=== PATIENT | male | born 1960 | race Caucasian/White ===

== ENCOUNTER 2018-02-24 11:10 | Inpatient (IN) | payer MEDICAID ==
[~2018-02-24] VITALS: Ht 177.8 cm; Wt 78.8 kg
[2018-02-24] MEDS ORDERED: SODIUM CHLORIDE FLUSH 10ML SYR IVF ONE (12:00)
[2018-02-24] MEDS ORDERED: FAMOTIDINE 20 MG/2 ML IVP ONE (12:00)
[2018-02-24] MEDS ORDERED: ONDANSETRON 2MG/ML, 2ML IVPush ONE (12:00)
[2018-02-24] MEDS ORDERED: SODIUM CHLORIDE 0.9% 1,000ML IVBOLUS ONE (12:00)
[2018-02-24 12:23] LABS: MEAN CORPUSCULAR HGB CONC 33.7 g/dL (33.2-36.2); MEAN CORPUSCULAR VOLUME 88.8 fL (81-97); PLATELET COUNT 242 x10^3/uL (130-400); RED BLOOD COUNT 6.32 x10^6/uL (4.38-5.82); RED CELL DISTRIBUTION WIDTH 13.7 % (9.4-14.8)
[2018-02-24] MEDS ORDERED: ONDANSETRON 2MG/ML, 2ML ONE ×4 (12:26→15:10)
[2018-02-24] MEDS ORDERED: FAMOTIDINE 20 MG/2 ML ONE (12:26)
[2018-02-24 12:28] LABS: ALBUMIN 3.7 g/dL (3.4-5.0); ANION GAP 7 mmol/L (5-15); CALCIUM 9.9 mg/dL (8.5-10.1); CHLORIDE 108 mmol/L (98-107)
[2018-02-24 12:32] LABS: ALANINE AMINOTRANSFERASE 30 U/L (12-78); ALKALINE PHOSPHATASE 158 U/L (45-117); CREATININE 1.25 mg/dL (0.7-1.3); TOTAL PROTEIN 8.2 g/dL (6.4-8.2)
[2018-02-24 13:14] LABS: MD YES
[2018-02-24 13:15] LABS: BAND#(MANUAL) 2.06 x10^3/uL; BANDS%(MANUAL) 14 % (0-7); LYMPH#(MANUAL) 1.62 x10^3/uL (1-3.4); LYMPHS% (MANUAL) 11 % (22-44); MONOS#(MANUAL) 0.44 x10^3/uL (0.3-2.7); MONOS% (MANUAL) 3 % (2-9); SEG#(MANUAL) 10.58 x10^3/uL (1.8-6.8); SEGS% (MANUAL) 72 % (42-75)
[2018-02-24 13:16] LABS: <PLATELET ESTIMATE> ADEQUATE; <PLT MORPHOLOGY> NORMAL PLT MORPH
[2018-02-24] MEDS ORDERED: OMNIPAQUE 350 MG/ML, 100ML BOTTLE ONE (13:43)
[2018-02-24] MEDS ORDERED: SODIUM CHLORIDE 0.9% 1,000 ML IV ONE ×2 (14:02→14:03)
[2018-02-24] MEDS ORDERED: MORPHINE SULFATE 4 MG/ML, 1ML IVPush PRN ×2 (14:30→22:00)
[2018-02-24] MEDS ORDERED: SODIUM CHLORIDE FLUSH 10ML SYR IVF PRN (14:30)
[2018-02-24] MEDS ORDERED: ONDANSETRON 2MG/ML, 2ML IVPush PRN ×3 (14:30→22:00)
[2018-02-24] MEDS ORDERED: FENTANYL PF 100 MCG/2ML ONE ×5 (14:39→18:59)
[2018-02-24] MEDS ORDERED: MIDAZOLAM 1 MG/ML, 2ML ONE (14:39)
[2018-02-24] MEDS ORDERED: WATER-INJECTION,STERILE 10 ML IV ONE ×2 (14:39→14:44)
[2018-02-24] MEDS ORDERED: CEFAZOLIN 1,000 MG ONE ×2 (14:39)
[2018-02-24] MEDS ORDERED: EPHEDRINE 50 MG/ML, 1ML ONE (14:39)
[2018-02-24] MEDS ORDERED: LIDOCAINE-MPF 2% ,5ML ONE (14:39)
[2018-02-24] MEDS ORDERED: SUCCINYLCHOLINE 20 MG/ML, 10ML ONE ×2 (14:42→15:10)
[2018-02-24] MEDS ORDERED: NEOSTIGMINE 1 MG/ML, 10ML ONE (14:42)
[2018-02-24] MEDS ORDERED: ROCURONIUM 10MG/ML,5ML ONE (14:42)
[2018-02-24] MEDS ORDERED: GLYCOPYRROLATE 0.4 MG/2 ML, 2ML ONE ×2 (14:42)
[2018-02-24] MEDS ORDERED: LIDOCAINE GEL 2%, 5ML ONE (14:45)
[2018-02-24] MEDS ORDERED: DEXAMETHASONE 4 MG/ML, 1ML ONE (15:10)
[2018-02-24] MEDS ORDERED: METOCLOPRAMIDE 5 MG/ML, 2ML ONE (15:10)
[2018-02-24] MEDS ORDERED: MIDAZOLAM 1 MG/ML, 2ML IV PRN (16:30)
[2018-02-24] MEDS ORDERED: LABETALOL 5MG/ML, 20ML IV PRN (16:30)
[2018-02-24] MEDS ORDERED: MEPERIDINE/PF 25MG/0.5ML IVPush PRN (16:30)
[2018-02-24] MEDS ORDERED: OXYcodone 5 MG/5 ML ORAL.SOL UDC PO PRN (16:30)
[2018-02-24] MEDS ORDERED: OXYcodone 5 MG/5 ML ORAL.SOL UDC ONE (19:00)
[2018-02-24] MEDS ORDERED: MEPERIDINE/PF 50 MG/ML ONE (19:00)
[2018-02-24] MEDS: FENTANYL PF 100 MCG/2ML IV PRN ×2 (19:22→19:54)
[2018-02-24] MEDS ORDERED: MORPHINE SULFATE 4 MG/ML, 1ML ONE (19:31)
[2018-02-24] MEDS: MORPHINE SULFATE 4 MG/ML, 1ML IVPush PRN ×2 (19:32→19:50)
[2018-02-24] MEDS ORDERED: HYDROmorphone 2 MG/ML, 1ML ONE (19:59)
[2018-02-24] MEDS: HYDROmorphone 1 MG/ML, 1ML IV PRN ×4 (20:17→20:47)
[2018-02-24] MEDS ORDERED: DIPHENHYDRAMINE 50 MG/ML, 1ML IVPush PRN (22:00)
[2018-02-24] MEDS ORDERED: ENOXAPARIN 40 MG/0.4 ML SQ SCH (22:00)
[2018-02-24] MEDS: KETOROLAC 30 MG/1 ML IV PRN (22:21)
[2018-02-25 01:01] VITALS: BP 116/74
[2018-02-25] MEDS: LACTATED RINGERS 1,000 ML IV SCH ×3 (01:27→21:30)
[2018-02-25] MEDS: OXYcodone/APAP 5/325MG TABLET PO PRN ×4 (01:27→21:21)
[2018-02-25 05:44] VITALS: BP 111/71
[2018-02-25 06:42] VITALS: BP 104/68
[2018-02-25] MEDS: ENOXAPARIN 40 MG/0.4 ML SQ SCH (09:50)
[2018-02-25] MEDS: TAMSULOSIN 0.4 MG CAP.ER.24H PO SCH (10:10)
[2018-02-25 13:28] VITALS: BP 107/63
[2018-02-25 19:51] VITALS: BP 127/71
[2018-02-26 01:10] VITALS: BP 132/73
[2018-02-26 05:33] LABS: ANION GAP 7 mmol/L (5-15); CALCIUM 8.1 mg/dL (8.5-10.1); CHLORIDE 102 mmol/L (98-107); CREATININE 0.92 mg/dL (0.7-1.3)
[2018-02-26 05:38] LABS: MEAN CORPUSCULAR HEMOGLOBIN 30.1 pg (27.5-34.5); MEAN CORPUSCULAR HGB CONC 33.5 g/dL (33.2-36.2); MEAN CORPUSCULAR VOLUME 89.8 fL (81-97); MEAN PLATELET VOLUME 9.1 fL (7.4-10.4); PLATELET COUNT 224 x10^3/uL (130-400); RED BLOOD COUNT 4.61 x10^6/uL (4.38-5.82); RED CELL DISTRIBUTION WIDTH 13.4 % (9.4-14.8)
[2018-02-26 07:00] LABS: MD YES
[2018-02-26 07:03] LABS: BAND#(MANUAL) 0.93 x10^3/uL; BANDS%(MANUAL) 6 % (0-7); LYMPH#(MANUAL) 1.55 x10^3/uL (1-3.4); LYMPHS% (MANUAL) 10 % (22-44); MONOS#(MANUAL) 1.55 x10^3/uL (0.3-2.7); MONOS% (MANUAL) 10 % (2-9); SEG#(MANUAL) 11.47 x10^3/uL (1.8-6.8); SEGS% (MANUAL) 74 % (42-75)
[2018-02-26 07:04] LABS: <RBC MORPHOLOGY> NORMAL
[2018-02-26 07:05] LABS: <PLATELET ESTIMATE> ADEQUATE; <PLT MORPHOLOGY> NORMAL PLT MORPH
[2018-02-26] MEDS: LACTATED RINGERS 1,000 ML IV SCH ×2 (07:32→14:22)
[2018-02-26 07:53] VITALS: BP 126/72
[2018-02-26] MEDS: TAMSULOSIN 0.4 MG CAP.ER.24H PO SCH (09:16)
[2018-02-26] MEDS: OXYcodone/APAP 5/325MG TABLET PO PRN ×2 (09:16→22:28)
[2018-02-26] MEDS: ENOXAPARIN 40 MG/0.4 ML SQ SCH (09:16)
[2018-02-26 14:15] VITALS: BP 123/76
[2018-02-26 21:26] VITALS: BP 117/68
[2018-02-27 00:38] VITALS: BP 129/68
[2018-02-27] MEDS: LACTATED RINGERS 1,000 ML IV SCH ×2 (03:30→08:24)
[2018-02-27 04:31] VITALS: BP 112/67
[2018-02-27] MEDS: KETOROLAC 30 MG/1 ML IV PRN (04:35)
[2018-02-27] MEDS: OXYcodone/APAP 5/325MG TABLET PO PRN ×4 (04:36→23:11)
[2018-02-27 05:21] LABS: CHLORIDE 98 mmol/L (98-107)
[2018-02-27 05:24] LABS: MEAN CORPUSCULAR HEMOGLOBIN 30.3 pg (27.5-34.5); MEAN CORPUSCULAR HGB CONC 34.2 g/dL (33.2-36.2); MEAN CORPUSCULAR VOLUME 88.6 fL (81-97); PLATELET COUNT 227 x10^3/uL (130-400); RED BLOOD COUNT 4.38 x10^6/uL (4.38-5.82); RED CELL DISTRIBUTION WIDTH 13.4 % (9.4-14.8)
[2018-02-27 05:32] LABS: ANION GAP 10 mmol/L (5-15); CALCIUM 8.2 mg/dL (8.5-10.1); CREATININE 0.73 mg/dL (0.7-1.3)
[2018-02-27 07:10] VITALS: BP 111/68
[2018-02-27 07:54] LABS: MD YES
[2018-02-27 08:01] LABS: LYMPH#(MANUAL) 1.51 x10^3/uL (1-3.4); LYMPHS% (MANUAL) 8 % (22-44); MONOS#(MANUAL) 0.38 x10^3/uL (0.3-2.7); MONOS% (MANUAL) 2 % (2-9); SEG#(MANUAL) 17.01 x10^3/uL (1.8-6.8); SEGS% (MANUAL) 90 % (42-75)
[2018-02-27 08:02] LABS: <PLATELET ESTIMATE> ADEQUATE; <PLT MORPHOLOGY> NORMAL PLT MORPH; <RBC MORPHOLOGY> NORMAL
[2018-02-27] MEDS: PIPERACILLIN/TAZO/PMX 3.375GM 50 ML IV SCH ×3 (08:23→19:52)
[2018-02-27] MEDS: TAMSULOSIN 0.4 MG CAP.ER.24H PO SCH (08:23)
[2018-02-27] MEDS: ENOXAPARIN 40 MG/0.4 ML SQ SCH (08:24)
[2018-02-27 11:50] LABS: MICROSCOPIC INDICATED
[2018-02-27 15:45] VITALS: BP 115/70
[2018-02-27 20:25] VITALS: BP 101/64
[2018-02-28] MEDS: PIPERACILLIN/TAZO/PMX 3.375GM 50 ML IV SCH ×4 (02:11→20:30)
[2018-02-28 02:59] VITALS: BP 122/72
[2018-02-28 05:23] LABS: CHLORIDE 98 mmol/L (98-107)
[2018-02-28 05:24] LABS: BASOPHILS # (AUTO) 0.03 x10^3/uL (0-0.1); BASOPHILS % (AUTO) 0 % (0-1); EOSINOPHILS # (AUTO) 0.19 x10^3/uL (0-0.4); EOSINOPHILS % (AUTO) 2 % (1-7); LYMPHOCYTES # (AUTO) 1.09 x10^3/uL (1-3.4); LYMPHOCYTES % (AUTO) 10 % (22-44); MD NO; MEAN CORPUSCULAR HEMOGLOBIN 29.8 pg (27.5-34.5); MEAN CORPUSCULAR HGB CONC 33.7 g/dL (33.2-36.2); MEAN CORPUSCULAR VOLUME 88.5 fL (81-97); MEAN PLATELET VOLUME 8.7 fL (7.4-10.4); MONOCYTES # (AUTO) 1.23 x10^3/uL (0.2-0.8); MONOCYTES % (AUTO) 12 % (2-9); NEUTROPHILS # (AUTO) 7.93 x10^3/uL (1.8-6.8); NEUTROPHILS % (AUTO) 76 % (42-75); PLATELET COUNT 262 x10^3/uL (130-400); RED BLOOD COUNT 4.25 x10^6/uL (4.38-5.82)
[2018-02-28 05:28] LABS: ANION GAP 7 mmol/L (5-15); CALCIUM 8.2 mg/dL (8.5-10.1); CREATININE 0.79 mg/dL (0.7-1.3)
[2018-02-28] MEDS: LACTATED RINGERS 1,000 ML IV SCH (06:12)
[2018-02-28] MEDS: OXYcodone/APAP 5/325MG TABLET PO PRN ×4 (06:12→22:14)
[2018-02-28] MEDS: ENOXAPARIN 40 MG/0.4 ML SQ SCH (08:33)
[2018-02-28] MEDS: TAMSULOSIN 0.4 MG CAP.ER.24H PO SCH (08:33)
[2018-02-28] MEDS ORDERED: POTASSIUM CHLORIDE 20 MEQ TAB.ER.PRT PO ONE (09:30)
[2018-02-28] MEDS: OMEPRAZOLE 20 MG CAPSULE.DR PO SCH ×2 (10:35→20:46)
[2018-02-28 10:38] VITALS: BP 121/69
[2018-02-28 15:15] VITALS: BP 124/73
[2018-02-28 19:59] VITALS: BP 103/58
[2018-02-28] MEDS: SODIUM CHLORIDE FLUSH 10ML SYR IVF SCH (20:30)
[2018-02-28] MEDS ORDERED: OMEPRAZOLE 20 MG CAPSULE.DR PO SCH (21:00)
[2018-03-01] MEDS: PIPERACILLIN/TAZO/PMX 3.375GM 50 ML IV SCH ×3 (02:32→13:58)
[2018-03-01] MEDS: OXYcodone/APAP 5/325MG TABLET PO PRN ×3 (02:38→16:19)
[2018-03-01 03:11] VITALS: BP 110/68
[2018-03-01 05:06] LABS: BASOPHILS # (AUTO) 0.03 x10^3/uL (0-0.1); BASOPHILS % (AUTO) 0 % (0-1); EOSINOPHILS # (AUTO) 0.55 x10^3/uL (0-0.4); EOSINOPHILS % (AUTO) 5 % (1-7); LYMPHOCYTES # (AUTO) 1.86 x10^3/uL (1-3.4); LYMPHOCYTES % (AUTO) 16 % (22-44); MD NO; MEAN CORPUSCULAR HEMOGLOBIN 30.1 pg (27.5-34.5); MEAN CORPUSCULAR VOLUME 88.5 fL (81-97); MEAN PLATELET VOLUME 8.1 fL (7.4-10.4); MONOCYTES # (AUTO) 1.31 x10^3/uL (0.2-0.8); MONOCYTES % (AUTO) 12 % (2-9); NEUTROPHILS # (AUTO) 7.59 x10^3/uL (1.8-6.8); NEUTROPHILS % (AUTO) 67 % (42-75); PLATELET COUNT 303 x10^3/uL (130-400); RED BLOOD COUNT 4.08 x10^6/uL (4.38-5.82); RED CELL DISTRIBUTION WIDTH 13.1 % (9.4-14.8)
[2018-03-01 05:12] LABS: CHLORIDE 105 mmol/L (98-107)
[2018-03-01 05:18] LABS: ANION GAP 7 mmol/L (5-15); CALCIUM 8.3 mg/dL (8.5-10.1)
[2018-03-01 08:00] VITALS: BP 110/68
[2018-03-01] MEDS: TAMSULOSIN 0.4 MG CAP.ER.24H PO SCH (08:08)
[2018-03-01] MEDS: SODIUM CHLORIDE FLUSH 10ML SYR IVF SCH (08:08)
[2018-03-01] MEDS: OMEPRAZOLE 20 MG CAPSULE.DR PO SCH (08:08)
[2018-03-01 08:35] VITALS: BP 111/63
[2018-03-01] MEDS: ENOXAPARIN 40 MG/0.4 ML SQ SCH (09:33)
[2018-03-01 14:00] VITALS: BP 106/60
[2018-03-01] MEDS ORDERED: OXYC1TAB7 PO (16:04)
[2018-03-01] MEDS ORDERED: POLY17PO5 PO (16:05)
[2018-03-01] MEDS ORDERED: AMOX1TAB64 PO (16:05)
== END 2018-03-01 16:59 | disposition home or self-care (01) | DRG 337 ==
LOC: ED 14:14 → EDIP 14:26 → 4NOR 21:20
PROVIDERS: ADMIT Colon & Rectal Surgery; ATTEND Colon & Rectal Surgery
PROC: 0VQ90ZZ Repair Right Testis, Open Approach (ICD-10-PCS; 2018-02-24)
PROC: 0YU50JZ Supplement Right Inguinal Region with Synthetic Substitute, Open Approach (ICD-10-PCS; 2018-02-24)
PROC: 0WJP4ZZ Inspection of Gastrointestinal Tract, Percutaneous Endoscopic Approach (ICD-10-PCS; 2018-02-24)
PROC: 0DN80ZZ Release Small Intestine, Open Approach (ICD-10-PCS; principal; 2018-02-24 14:30)
PROC: 0T9B70Z Drainage of Bladder with Drainage Device, Via Natural or Artificial Opening (ICD-10-PCS; 2018-02-27)
DX: K40.30 Unilateral inguinal hernia, with obstruction, without gangrene, not specified as recurrent (principal); K66.0 Peritoneal adhesions (postprocedural) (postinfection); N43.3 Hydrocele, unspecified; K21.9 Gastro-esophageal reflux disease without esophagitis; N49.2 Inflammatory disorders of scrotum; M54.5 Low back pain; F17.210 Nicotine dependence, cigarettes, uncomplicated
CPT/HCPCS: 36415; 74177; 80048; 80053; 81001; 83690; 85025; 93005; 96361; 96374; 96375; J0690; J1100; J1170; J1650; J1885; J2175; J2250; J2405; J2543; J2710; J3010; J3490; Q9967; C1781; J0330; J2765; J7030; J7120; S0028